=== PATIENT | female | born 1995 | race Caucasian/White ===

== ENCOUNTER 2016-09-24 00:39 | Emergency (ER) | payer SELFPAY ==
[~2016-09-24] VITALS: Ht 157.5 cm; Wt 67.4 kg
[2016-09-24 00:42] VITALS: BP 145/73
--- NOTE | 2016-09-24 00:50 | NUR ---
PT TAKEN TO BED 8
--- NOTE | 2016-09-24 00:50 | NUR ---
PT IS 20/F BIB BOYFRIEND TO ED WITH C/O SOB R/T ALLERGIC REACTION TO ALCOHOL.PT STATES TROUBLE SWALLOWING PT STATES HAS A HX OF ALLGIC REACTIONS TO ALCOHOL AND AN RX FOR EPI PEN WAS GIVEN BUT NEVER PURCHASE D/T LACK OF HEALTH INSURANCE. NO MED HX.DENIES N/V/D; SKIN IS PINK/WARM/DRY; AAOX4 WITH EVEN AND STEADY GAIT; LUNGS CLEAR BL; HR EVEN AND REGULAR; PT DENIES ANY FEVER, CP, SOB, OR COUGH AT THIS TIME; PATIENT STATES PAIN OF 0/10 AT THIS TIME; VSS; PATIENT POSITIONED FOR COMFORT; HOB ELEVATED; BEDRAILS UP X2; BED DOWN. ER MD MADE AWARE OF PT STATUS.
--- NOTE | 2016-09-24 01:18 | NUR ---
Dr. Mcgowan evaluating patient at bedside.
[2016-09-24] MEDS ORDERED: methylPREDNISolone SS 125 MG in WATER STERILE 2 ML IM ONE (01:25)
[2016-09-24] MEDS ORDERED: diphenhydrAMINE 50 MG/ML VIAL IM ONE (01:25)
[2016-09-24 02:36] VITALS: BP 123/69
--- NOTE | 2016-09-24 02:36 | NUR ---
Patient discharged with v/s stable. Written and verbal after care instructions given and explained. Patient alert, oriented and verbalized understanding of instructions. Ambulatory with steady gait. All questions addressed prior to discharge. ID band removed. Patient advised to follow up with PMD. Rx of BENADRYL ALLERGY, PREDNISONE given. Patient educated on indication of medication including possible reaction and side effects. Opportunity to ask questions provided and answered.
== END 2016-09-24 02:36 | disposition home or self-care (01) ==
LOC: MED 00:39
DX: T78.49XA Other allergy, initial encounter (principal); X58.XXXA Exposure to other specified factors, initial encounter
CPT/HCPCS: 96372; 99284; J1200; J2930